=== PATIENT | male | born 1980 | race African-American/Black ===

== ENCOUNTER 2019-01-08 08:52 | Emergency (ER) | payer OTHER ==
[~2019-01-08] VITALS: Ht 167.6 cm; Wt 63.5 kg
[2019-01-08 09:17] LABS: HEMATOCRIT 39.7 % (42.0-52.0); MCH 28.9 pg (26.0-34.0); MCHC 32.8 g/dL (28.0-37.0); MCV 88.1 fL (80.0-100.0); PLATELET COUNT 162 thou/uL (150-400); RBC 4.51 mil/uL (4.50-6.00); RDW 15.4 % (10.5-14.5); WBC 2.6 thou/uL (4.0-11.0)
[2019-01-08 09:26] LABS: CALCIUM 8.9 mg/dL (8.5-10.1); CREATININE 9.6 mg/dL (0.7-1.3); POTASSIUM 4.4 mmol/L (3.5-5.1)
[2019-01-08 09:31] LABS: TOTAL BILIRUBIN 0.4 mg/dL (<0.1-1.0)
[2019-01-08 09:50] LABS: ABSOLUTE NEUTROPHILS 1.3 thou/uL (1.4-8.2); PLATELET ESTIMATE NORMAL
[2019-01-08 10:08] VITALS: BP 152/89
--- NOTE | 2019-01-09 07:45 | EKG ---
[address] [place] [address] ELECTROCARDIOGRAM REPORT Name: ESCOBAR GUPTA [facility] [id number] ������������������ Admission: 01/08/19 ������������������ Attend Phys: Discharge: 01/08/19 ������������������ Date of : 82 Report #: [id number] ����������������������������������������������������������������� [id number] THIS REPORT FOR: //name// [facility]ly [facility] ED Test Date: 2019-01-08 Test Time: 09:18:50 Pat Name: ESCOBAR GUPTA Department: Room: Gender: Primary Care Sales Representative: Mila SPRING RN : 1980 Requested By: Marco Starr Order Number: [id number] MD: Venu Graves Measurements Intervals [place] Rate: 72 P: 15 TN: 174 QRS: 74 QRSD: 92 T: 73 QT: 414 QTc: 454 Interpretive Statements Sinus rhythm Possible Anteroseptal infarct, old No previous ECG available for comparison Electronically Signed On 01-09-2019 7:44:56 CDT by Venu Graves [email or web address] ��������������������������������������������� <ELECTRONICALLY SIGNED> ���������������������������������������� By: Venu Graves MD, [facility] ��������������������������������������������� 01/09/19 0744 0918 7 Venu Graves MD, FACC /EPI
== END 2019-01-08 10:05 | disposition home or self-care (01) ==
LOC: ER 08:52
PROVIDERS: Emergency Medicine
DX: I12.0 Hypertensive chronic kidney disease with stage 5 chronic kidney disease or end stage renal disease (principal); N18.6 End stage renal disease; Z99.2 Dependence on renal dialysis; R06.02 Shortness of breath